=== PATIENT | male | born 1985 | race Caucasian/White ===

== ENCOUNTER 2019-10-27 10:23 | Emergency (ER) | payer OTHER ==
[~2019-10-27] VITALS: Ht 172.7 cm; Wt 70.3 kg
[2019-10-27 13:23] VITALS: BP 110/67
== END 2019-10-27 14:59 | disposition home or self-care (01) ==
LOC: ER 10:23
DX: R05 Cough (principal); R06.02 Shortness of breath; R07.89 Other chest pain; R11.0 Nausea; R51 Headache; R07.0 Pain in throat; R09.81 Nasal congestion
CPT/HCPCS: 71046; 93005